=== PATIENT | female | born 1995 ===

== ENCOUNTER 2019-08-31 16:07 | Inpatient (IN) | payer OTHER ==
[~2019-08-31] VITALS: Ht 160 cm; Wt 1.4 kg
[2019-08-31] MEDS ORDERED: IRON325 MG PO (17:08)
[2019-08-31] MEDS ORDERED: PRENATAL TABLE1 EAC1 PO (17:49)
== END 2019-09-06 10:02 | disposition home or self-care (01) | DRG 786 ==
LOC: LDR 16:07 → OB/GYN 09-04 10:17
PROVIDERS: ADMIT Specialist
PROC: BY4FZZZ Ultrasonography of Third Trimester, Single Fetus (ICD-10-PCS; 2019-08-31)
PROC: 4A1HXCZ Monitoring of Products of Conception, Cardiac Rate, External Approach (ICD-10-PCS; 2019-08-31)
PROC: BY4FZZZ Ultrasonography of Third Trimester, Single Fetus (ICD-10-PCS; 2019-09-01)
PROC: BY4FZZZ Ultrasonography of Third Trimester, Single Fetus (ICD-10-PCS; 2019-09-01)
PROC: 4A033R1 Measurement of Arterial Saturation, Peripheral, Percutaneous Approach (ICD-10-PCS; 2019-09-03)
PROC: 10D00Z1 Extraction of Products of Conception, Low, Open Approach (ICD-10-PCS; principal; 2019-09-03 08:00)
DX: O76 Abnormality in fetal heart rate and rhythm complicating labor and delivery (principal); O14.13 Severe pre-eclampsia, third trimester; O60.14X0 Preterm labor third trimester with preterm delivery third trimester, not applicable or unspecified; O26.873 Cervical shortening, third trimester; O32.9XX1 Maternal care for malpresentation of fetus, unspecified, fetus 1; Z22.330 Carrier of Group B streptococcus; Z3A.32 32 weeks gestation of pregnancy; Z37.0 Single live birth